=== PATIENT | female | born 1980 | race Two or more races ===

== ENCOUNTER 2025-02-11 13:15 | Day surgery (SDC) | payer MEDICAID, SELFPAY ==
--- NOTE | 2025-02-07 17:02 | EKG_ITS ---
[facility] Test Date: 2025-02-08 Pat Name: PARTH BLANCHARD Department: Room: - Gender: Female [employer]: YOVANY : 1980 Requested By: Ervin Pratt Order Number: [id number] Reading MD: Ervin Pratt Measurements Intervals [place] Rate: 54 P: 2 TN: 126 QRS: 37 QRSD: 100 T: 13 QT: 399 QTc: 379 Interpretive Statements SINUS BRADYCARDIA NONSPECIFIC T-WAVE ABNORMALITY No previous ECG available for comparison /[id number]/[email or web address]/[id number]
[2025-02-08 07:34] VITALS: BMI 36.6
[2025-02-08 07:54] LABS: Collection Type, Urine Clean Catch
[2025-02-08 08:30] LABS: Alanine Aminotransferase 20 U/L (10-49); Albumin, Serum 4.3 gm/dL (3.5-5.0); Albumin/Globulin Ratio 1.4 (1.2-2.2); Alkaline Phosphatase 82 U/L (46-116); Anion Gap 7 (7-16); Aspartate Amino Transferase 19 U/L (0-34); BUN/Creatinine Ratio 9 Ratio (12-20); Bilirubin,Total 0.9 mg/dL (0.3-1.2); Blood Urea Nitrogen 6 mg/dL (9-23); Calcium 8.8 mg/dL (8.3-10.6); Calcium (Corrected) 8.8 mg/dL (8.5-10.1); Carbon Dioxide 27.8 mMol/L (20.0-31.0); Chloride 106 mMol/L (98-107); Creatinine (Component) 0.7 mg/dL (0.6-1.3); Estimated Creatinine Clearance 117.1 mL/min (>60); Globulin 3.1 gm/dL (2.3-3.5); Glucose 104 mg/dL (74-106); Osmolality,Calculated 278 (275-295); Potassium 4.0 mMol/L (3.4-5.1); Sodium 141 mMol/L (136-145); Total Protein 7.4 gm/dL (5.7-8.2); eGFR > 60 See Note
[2025-02-08 08:51] LABS: Basophils # (Auto) 0.0 Thou/mm3 (0.0-0.2); Basophils % (Auto) 0 % (0-2.5); Eosinophils # (Auto) 0.2 Thou/mm3 (0.0-0.5); Eosinophils % (Auto) 2 % (0-10); Hematocrit 39.7 % (36.0-46.0); Hemoglobin 13.3 g/dL (12.0-16.0); Immature Granulocytes Auto 0.02 Thou/mm3 (0.00-0.00); Lymphocytes # (Auto) 2.3 Thou/mm3 (1.0-4.8); Lymphocytes % (Auto) 34 % (10-50); Mean Corpuscular HGB Conc 33.5 g/dl (31.0-37.0); Mean Corpuscular Hemoglobin 28.2 pg (25.0-35.0); Mean Corpuscular Volume 84 fL (80-100); Monocytes # (Auto) 0.5 Thou/mm3 (0.0-0.8); Monocytes % (Auto) 7 % (0-12); Neutrophils # (Auto) 3.8 Thou/mm3 (1.8-7.7); Neutrophils % (Auto) 57 % (37-80); Nucleated Red Blood Cell # 0.00 Thou/mm3 (0.00-0.00); Nucleated Red Blood Cell % 0 /100 WBC (0); Platelet Count 295 Thou/mm3 (140-440); RDW Standard Deviation 37.1 fL (36.4-46.3); Red Blood Count 4.71 Miln/mm3 (4.00-5.20); White Blood Count 6.7 Thou/mm3 (3.6-11.0)
[2025-02-08 09:07] LABS: Partial Thromboplastin Time 27.1 Seconds (22.0-36.0)
[2025-02-08 09:22] LABS: Bacteria,Urine 1+; Bilirubin,Urine Negative (Negative); Blood,Urine 1+ (Negative); Clarity,Urine Turbid (Clear/Hazy); Color,Urine Yellow (Lt Yel-Yel); Glucose, Urine Negative (Negative); Ketones,Urine Negative (Negative); Leukocyte Esterase,Urine Positive (Negative); Nitrite,Urine Negative (Negative); PH,Urine 6.0 (5.0-7.0); Protein,Urine Trace (Neg - Trace); RBC,Urine 12 /hpf (0-3); Specific Gravity,Urine 1.025 (1.001-1.035); Squamous Epithelial Cell,Urine 118 /hpf (0-5); Urobilinogen,Urine Negative mg/dL (0.0-1.0); WBC,Urine 9 /hpf (0-5)
--- NOTE | 2025-02-08 14:09 | SUR.PREOP ---
Pt notified to come in at 1300 Tuesday for surgery.
[2025-02-11] VITALS (7 sets, daily range): BP systolic 110–137; BP diastolic 70–79; PULSE 69–84; RESP 14–23; TEMP 36.2–36.4; O2SAT 94–97; BMI 36.6
--- NOTE | 2025-02-11 18:41 | PD.SUROPNT ---
Date of Procedure 02/11/25 Pre Op Diagnosis Cholecystitis cholelithiasis Post Op Diagnosis Same none the gallbladder was completely filled with solid stones from top to bottom Procedure Very difficult laparoscopic cholecystectomy it took about 200% time during the cholecystectomy due to impacted stones. On 02/12/2020 for Findings This patient had a gallbladder solid like a rock from top to bottom and there was stones which were impacted everywhere. We were not able to grasp the gallbladder I had to cut the gallbladder open to remove all the impacted stones and then only I was able to grasp the gallbladder to lift it up. It seemed that there was a stone which was impacted in the Najera's pouch and the there were no stones in the cystic duct. There was marked inflammation all the way around the gallbladder including the liver bed. This produces oozing after the gallbladder was removed and required Surgicel powder to control it. Procedure Description In the preop area the procedure was discussed with the patient including risks benefits and alternatives. The risks include possible laparotomy, bleeding, infection bile duct injury and bile leak. Patient may require ERCP for retained stone or a bile leak. The anesthesia risks are to be explained to the patient by the anesthesiologist. Informed consent was obtained. The patient was positioned supine on the operating table and general anesthesia was administered in a satisfactory manner by the anesthesiologist. A timeout procedure was carried out. The patient is positioned in the reverse Trendelenburg position with the right side up. Orogastric tube is introduced into the stomach to decompress the stomach. Prophylactic antibiotics were given in timely manner. Antiembolism measures were taken. The abdomen chest and groin regions were prepped and draped in usual manner. A supraumbilical vertical incision was made and deepened through the layers of abdominal wall and open laparoscopic procedure is carried out. The balloon catheter was introduced and pneumoperitoneum is achieved. A 30? scope was used. Under direct vision right subxiphoid, midclavicular and anterior axillary line trochars were introduced. I attempted to lift of the gallbladder I could not lift it up because there was no way to grasp the gallbladder and it was completely filled with the stones and it was like a solid stone from the fundus to the Najera's pouch. I had to open the gallbladder near the fundus in a vertical manner and then I grasped some stones and slowly removed them 1 at a time that took long time. After that I was able to put in an jewel hole finish opener and irrigate some of the stones out. After that I was able to grasp the gallbladder. Gallbladder was then lifted up and a laparoscopic lysis of adhesions was carried out. The gallbladder is freed from the adhesions and the bárbara hepatis is exposed. The triangle of Calot is gently dissected and the artery to cystic duct is divided with harmonic ultrasonic kike. There is a significant amount of some acute and subacute inflammation with edema fluid and chronic scar tissue in the bárbara hepatis that made the dissection and procedures much slower. The posterior view of safety was achieved. The cystic artery and cystic duct are identified individually and they were ligated close to the gallbladder with hemoclips. There was an accessory cystic artery as well as multiple branches of the cystic artery proper. They were all individually controlled and divided. The cystic artery and the cystic duct are divided between the hemoclips close to the gallbladder. Care was taken to avoid tenting of the common duct. There is a significant length of cystic duct stump towards the common bile duct. The gallbladder is dissected and lifted from the liver bed using harmonic ultrasonic kike. The gallbladder bed hemostasis is achieved. I needed to use Surgicel powder in the liver bed to control the oozing. The gallbladder is retrieved out of the peritoneal cavity in a specimen bag. The balloon cannula is reintroduced and pneumoperitoneum is reestablished. There were about 40 or 50 stones which is spilled in the peritoneal cavity they were all retrieved 1 at a time. This took a long time. After that the peritoneal cavity is thoroughly irrigated with sterile saline solution and hemostasis again ascertained. All the cannulas are removed under direct vision there is no bleeding from the cannula sites. The linea alba repair is carried out with the 0 Vicryl continuous suture. The subcutaneous tissues approximated by a 3-0 chromic and skin by 4-0 monocril subcuticular stitch. For the rest of the trocar site incisions are closed in 2 layers with a 3-0 chromic and 4-0 monocril subcuticular stitch. Steri-Strips are applied. Sterile dressings are applied. Complications none. Patient is transferred to the recovery room in a satisfactory condition. Anesthesia GETA Drains None. Implants None. Pathology / specimen Other (Gallbladder with stones) Estimated Blood Loss 30 Condition Stable Disposition PACU Surgeon Ervin Pratt MD Surgical Staff Operation Date: 02/11/25 15:45 <No data on this case meets the specified criteria> Dr. Berry MORENO anesthesiologist DARCIE Roberst surgical scrub technician Maikel Kuhn surgical scrub technician Alex DE LA PAZ aircraft mechanic structures
--- NOTE | 2025-02-11 18:49 | SUR.PHASEI ---
pt arrived to PACU via gurney drowsy but arouses to voice, breathing unlabored, dressing to abdomen clean, dry, and intact, report from Alex DE LA PAZ and Dr Toure
[2025-02-11] MEDS: HYDROmorphone INJ 2 MG/ML VIAL 0.4 MG IVP (19:06)
[2025-02-11] MEDS: ACETAMINOPHEN IVPB 1,000 MG/100 ML VIAL 250 MG IV (19:08)
--- NOTE | 2025-02-11 19:15 | SUR.PHASEI ---
pt tolerating oral fluids without difficulty swallowing or n/v
--- NOTE | 2025-02-11 19:53 | SUR.PHASEII ---
pt awake, alert, able to follow commands, breathing unlabored, dressing to abdomen clean, dry, and intact, discharge instructions given with spouse present using telephone orchid grower Kavin ID#[id number], pt able to dress self and ambulate to wheelchair with steady gait, pt discharged via wheelchair with all belongings and copies of discharge paperwork.
== END 2025-02-11 19:53 | disposition home or self-care (01) ==
PROVIDERS: PCP Physician Assistant; Referring Provider Specialist; Visit Provider Specialist
PROC: 0FT44ZZ Resection of Gallbladder, Percutaneous Endoscopic Approach (ICD-10-PCS; CPT 47562; principal; 2025-02-11 15:30)
DX: K80.12 Calculus of gallbladder with acute and chronic cholecystitis without obstruction (principal); Z01.810 Encounter for preprocedural cardiovascular examination
CPT/HCPCS: 47562; 36415; 80053; 81001; 85025; 85730; 93005; A4217; A4649; J0131; J1100; J1171; J1885; J2250; J2405; J2704; J3010; J3490